=== PATIENT | male | born 1930 | race Caucasian/White ===

== ENCOUNTER → 2020-10-16 | Outpatient (CLI) | payer MEDICARE ==
[~2020-10-16] MED LIST: AMLO5 PO; ASPI81CH PO; CLON.5 PO; FAMO40 PO; HCTZ; OMEP20ER PO; PRAM.125 PO
== END | disposition home or self-care (01) ==
LOC: LAB SHORT 08:25
DX: L90.5 Scar conditions and fibrosis of skin (principal); H61.002 Unspecified perichondritis of left external ear
CPT/HCPCS: 88305; 88312